=== PATIENT | female | born 1960 | race Caucasian/White ===

== ENCOUNTER 2019-03-23 10:24 | Emergency (ER) | payer BC ==
[~2019-03-23] VITALS: Ht 167.6 cm; Wt 102.1 kg
[2019-03-23] MEDS ORDERED: CHLORTHALIDONE25 MG PO (10:33)
[2019-03-23 10:53] LABS: ABSOLUTE BASOPHILS 0.1 thou/uL (0.0-0.2); ABSOLUTE EOSINOPHILS 0.1 thou/uL (0.0-0.7); ABSOLUTE LYMPHOCYTES 3.5 thou/uL (0.8-5.3); ABSOLUTE MONOCYTES 0.6 thou/uL (0.0-1.2); ABSOLUTE NEUTROPHILS 5.9 thou/uL (1.6-8.1); BASOPHILS 1.3 %; HEMATOCRIT 40.8 % (37.0-47.0); MCH 32.3 pg (26.0-34.0); MCHC 34.4 g/dL (28.0-37.0); MONOCYTES 6.1 %; MPV 8.2 fl. (7.2-11.1); NUCLEATED RBCS 0 /100WBC; PLATELET COUNT* 269 thou/uL (150-400); POLYS 57.6 %; RBC 4.34 mil/uL (4.20-5.00); RDW-CV 13.1 % (10.5-14.5); WBC 10.3 thou/uL (4.0-11.0)
[2019-03-23 11:01] LABS: ANION GAP 6 mmol/L (7-16); BUN 15 mg/dL (7-18); CALCIUM 8.5 mg/dL (8.5-10.1); CHLORIDE 99 mmol/L (98-107); CO2 34 mmol/L (21-32); CREATININE 0.9 mg/dL (0.6-1.3); GLUCOSE 131 mg/dL (70-99); SODIUM 139 mmol/L (136-145)
[2019-03-23 11:06] LABS: POTASSIUM 2.8 mmol/L (3.5-5.1)
[2019-03-23 11:10] LABS: APTT 25.5 Seconds (25.0-31.3); INR 0.9; PROTIME 9.6 Seconds (9.20-11.50)
[2019-03-23 11:11] LABS: ALBUMIN 3.5 g/dL (3.4-5.0); ALKALINE PHOSPHATASE 85 U/L (46-116); SGOT 23 U/L (15-37); SGPT 37 U/L (30-65); TOTAL BILIRUBIN 0.4 mg/dL (<0.1-1.0); TOTAL PROTEIN 7.2 g/dL (6.4-8.2); TROPONIN-I LEVEL <0.06 ng/mL (<0.06)
[2019-03-23 13:36] VITALS: BP 155/76
--- NOTE | 2019-03-23 14:51 | EKG ---
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1960 Requested By: Precious Galan Order Number: [id number] MD: Danny Rose Measurements Intervals [place] Rate: 78 P: 29 MI: 145 QRS: 19 QRSD: 110 T: 54 QT: 402 QTc: 458 Interpretive Statements Sinus rhythm Low voltage, precordial leads Baseline wander in lead(s) V3,V5 No previous ECG available for comparison Electronically Signed On 03-23-2019 14:51:43 CDT by Danny Rose [email or web address] <ELECTRONICALLY SIGNED> By: Danny Rose MD, [facility] 03/23/19 1451 1035 1035 Danny Rose MD, FACC /EPI
[2019-03-23 14:55] LABS: URINE BILIRUBIN NEGATIVE (Negative); URINE BLOOD NEGATIVE (Negative); URINE CLARITY CLEAR; URINE COLOR YELLOW; URINE GLUCOSE-RANDOM NEGATIVE (Negative); URINE KETONES NEGATIVE (Negative); URINE LEUKOCYTES-REFLEX NEGATIVE (Negative); URINE NITRITE-REFLEX NEGATIVE (Negative); URINE PROTEIN NEGATIVE (Negative); URINE UROBILINOGEN 0.2 E.U./dl (0.2-1.0)
[2019-03-23] MEDS ORDERED: POTASSIUM20 PO (14:57)
[2019-03-23 15:15] LABS: AMP/METHAMP Negative (Negative); BARBITURATES Negative (Negative); BENZODIAZEPINES Negative (Negative); COCAINE Negative (Negative); METHADONE Negative (Negative); OPIATES Negative (Negative); PCP Negative (Negative); THC Negative (Negative)
== END 2019-03-23 15:05 | disposition home or self-care (01) ==
LOC: M.ERS 10:24
PROVIDERS: Nurse Practitioner Family
DX: E87.6 Hypokalemia (principal); R42 Dizziness and giddiness; F17.210 Nicotine dependence, cigarettes, uncomplicated; Z79.899 Other long term (current) drug therapy